=== PATIENT | female | born 1965 | race Caucasian/White ===

== ENCOUNTER 2021-07-26 07:54 | Day surgery (SDC) | payer MEDICAID, SELFPAY ==
[~2021-07-26] VITALS: Ht 172.7 cm; Wt 76.2 kg
[2021-07-26] MEDS ORDERED: fentaNYL CITRATE/PF 100 MCG/2 ML AMP ONE (09:47)
[2021-07-26] MEDS ORDERED: MIDAZOLAM HCL 5 MG/5 ML VIAL ONE (09:48)
[2021-07-26] MEDS ORDERED: DIPHENHYDRAMINE INJ 50 MG/ML VIAL ONE (10:31)
[2021-07-26 13:32] VITALS: BP_SYST 130
== END 2021-07-26 12:38 | disposition home or self-care (01) ==
LOC: SDS 07:54 → SMU 07:55 → SDS 12:38
PROVIDERS: ATTEND Internal Medicine
DX: R10.13 Epigastric pain (principal); K29.50 Unspecified chronic gastritis without bleeding; Z20.822 Contact with and (suspected) exposure to COVID-19; Z79.899 Other long term (current) drug therapy
CPT/HCPCS: 36415; 43239; 87081; 87426; 88305; 88312; 88313; 99152; G0378; J1200; J2250; J3010; U0003

== ENCOUNTER 2021-11-09 06:32 | Day surgery (SDC) | payer MEDICAID ==
[~2021-11-09] VITALS: Ht 172.7 cm; Wt 76.7 kg
[2021-11-09] MEDS ORDERED: SIMETHICONE 40 MG/0.6 ML ML ONE (07:38)
[2021-11-09] MEDS ORDERED: MIDAZOLAM HCL 5 MG/5 ML VIAL ONE (07:39)
[2021-11-09] MEDS ORDERED: fentaNYL CITRATE/PF 100 MCG/2 ML AMP ONE (07:39)
[2021-11-09 13:16] VITALS: BP_SYST 139
== END 2021-11-09 09:17 | disposition home or self-care (01) ==
LOC: SDS 06:32 → SMU 06:36 → SDS 09:17
PROVIDERS: ATTEND Internal Medicine
DX: R10.13 Epigastric pain (principal); K29.50 Unspecified chronic gastritis without bleeding; D13.2 Benign neoplasm of duodenum; K44.9 Diaphragmatic hernia without obstruction or gangrene; K25.9 Gastric ulcer, unspecified as acute or chronic, without hemorrhage or perforation; Z79.899 Other long term (current) drug therapy; Z20.822 Contact with and (suspected) exposure to COVID-19
CPT/HCPCS: 36415 ×2; 43239; 87081; 87426; 88305; 88312; 88313; 99152; G0378; J2250; J3010; U0003